=== PATIENT | female | born 1955 | race African-American/Black ===

== ENCOUNTER 2022-10-23 10:34 | Outpatient (CLI) | payer MEDICARE ==
[~2022-10-23 10:34] MED LIST: Magnevist 469MG/ML 20 ML VIAL ONE
== END 2022-10-23 10:35 | disposition home or self-care (01) ==
LOC: CSHMRI 10:34
PROVIDERS: ATTEND Physician Assistant Surgical
DX: D36.10 Benign neoplasm of peripheral nerves and autonomic nervous system, unspecified (principal); Z98.890 Other specified postprocedural states; E04.1 Nontoxic single thyroid nodule
CPT/HCPCS: 72156; 82565